=== PATIENT | female | born 1985 | race Caucasian/White ===

== ENCOUNTER 2020-02-12 15:06 | Outpatient (CLI) | payer OTHER, SELFPAY ==
--- NOTE | ~2020-02-12 | US_ITS ---
US breast LT limited 02/12/2020 15:32 Indication: Palpable left breast lump Procedure: High-resolution ultrasound of the left breast Comparison: No prior studies for comparison. Findings: At 5:00, 4 cm from the nipple in the area of palpable concern there is a septated 3 mm cyst . No suspicious masses are identified to suggest malignancy. Impression: 1: Septated 3 mm left breast cysts at 5:00, 4 cm from the nipple corresponding to the palpable abnorm ality. No sonographic evidence for malignancy. BI-RADS CATEGORY 2 - BENIGN FINDINGS Reviewed, dictated and finalized at location A. Impression: 1: Septated 3 mm left breast cysts at 5:00, 4 cm from the nipple corresponding to the palpable abnormality. No sonographic evidence for malignancy. BI-RADS CATEGORY 2 - BENIGN FINDINGS
== END 2020-02-12 15:07 | disposition home or self-care (01) ==
PROVIDERS: Visit Provider Obstetrics & Gynecology
DX: N63.20 Unspecified lump in the left breast, unspecified quadrant (principal); R92.8 Other abnormal and inconclusive findings on diagnostic imaging of breast
CPT/HCPCS: 76642

== ENCOUNTER 2020-06-17 15:34 | Outpatient (CLI) | payer OTHER, SELFPAY ==
--- NOTE | ~2020-06-17 | MM_ITS ---
EXAMINATION: MM screening gene BI w marilee HISTORY: Screening TECHNIQUE: Craniocaudal and mediolateral oblique 3-D tomosynthesis images were obtained and synthetic 2-D images were generated. CAD analysis was submitted and interpreted. COMPARISON: No prior mammogram is available for comparison at this institution. BREAST PARENCHYMAL COMPOSITION: The breasts are extremely dense, which lowers the sensitivity of mamm ography. FINDINGS: There is no evidence of suspicious mass, calcification, or architectural distortion to sugg est malignancy in either breast. There has been no suspicious interval change. IMPRESSION: 1. No mammographic evidence of malignancy. 2. Recommend routine screening mammography in one year. BI-RADS Category 1: Negative Reviewed, dictated and finalized at location A.
== END 2020-06-17 15:35 | disposition home or self-care (01) ==
LOC: ANHIMG 15:36
PROVIDERS: PCP Internal Medicine; Visit Provider Surgery Plastic and Reconstructive Surgery
DX: Z12.31 Encounter for screening mammogram for malignant neoplasm of breast (principal)
CPT/HCPCS: 77063; 77067

== ENCOUNTER 2020-07-01 01:35 | Outpatient (CLI) | payer SELFPAY ==
[2020-07-01 18:17] LABS: SARS-CoV-2 RNA PCR Negative
== END 2020-07-01 01:36 | disposition home or self-care (01) ==
LOC: ANHCOVIDDT 01:35
PROVIDERS: PCP Internal Medicine; Visit Provider Surgery Plastic and Reconstructive Surgery
DX: Z01.812 Encounter for preprocedural laboratory examination (principal); Z20.828 Contact with and (suspected) exposure to other viral communicable diseases
CPT/HCPCS: 87635; C9803; U0003

== ENCOUNTER 2020-07-03 01:13 | Day surgery (SDC) | payer OTHER, SELFPAY ==
[2020-06-24 08:53] VITALS: BMI 20.1
--- NOTE | 2020-07-02 14:22 | P.PNAN_ITS ---
Anes - Initial Pre Proc Eval Procedure: Operation Date: 07/03/20 12:00 Proposed Procedures p Bilateral Breast Augmentation - Espinoza Navarro MD Date/Time: 07/02/20 14:22 Surgeon: Espinoza Navarro MD Pre Op Diagnosis: Micromastia Patient Data Age: 34 Gender: F Height: 1.57 m Weight: 49.9 kg Allergies Allergy/AdvReac Type Severity Reaction Status Date / Time No Known Allergies Allergy Mild Verified 07/03/20 10:03 Home Medications Medication Instructions Recorded Confirmed Type mecobalamin (vitamin B12) 1,000 1,000 mcg PO DAILY 04/29/20 07/03/20 History mcg chewable tablet multivitamin 1 tablet PO DAILY 04/29/20 07/03/20 History docusate sodium 100 mg capsule 100 mg PO DAILY #14 cap 06/18/20 06/24/20 Rx ondansetron HCl 4 mg tablet 4 mg PO Q8H #28 tablet 06/18/20 06/24/20 Rx carisoprodol 350 mg tablet 350 mg PO TID PRN #21 tablet 06/22/20 06/24/20 Rx oxycodone-acetaminophen 5 mg-325 1 tablet PO Q6H PRN #15 tablet 06/22/20 06/24/20 Rx mg tablet Patient hx anesthesia problems: none Family hx anesthesia problems: none [facility] Past Medical History Medical History Cyst of breast Surgical History Surgical History History of 2006 Social History Social History Smoking status: Never smoker Alcohol intake: current Drinks per week: 2 Substance use: never Anes - Eval Final PreProcedure Day of Procedure 07/02/20 14:22 Patient weight: normal Heart: regular rate and rhythm Lungs: clear to auscultation and normal air movement Airway: Mallampati scale class II Neurological: alert and oriented Last oral intake: >/= 8 hours ASA classification: I Emergent: no Anesthetic plan: proceed Anesthesia type and monitoring: general LMA Informed Consent: The patient's anesthetic plan and its attendant risks and benefits were discussed with the patient/family/POA. Questions were solicited and answers provided to the satisfaction of the patient/family/POA.
[2020-07-03] VITALS (7 sets, daily range): BP systolic 103–123; BP diastolic 57–73; PULSE 61–107; RESP 14–18; TEMP 36.5–36.6; O2SAT 100
[2020-07-03] MEDS: LACTATED RINGERS 1,000 ML 30 ML IV CONT (10:30)
--- NOTE | 2020-07-03 11:56 | WPDHPUPDATE1 ---
History and Physical Update Update Date/Time: 07/03/20 11:56 History and Physical has been reviewed, including an updated exam of the patient. There are NO changes in the patient's condition. Risks, benefits, and alternatives have been discussed and questions answered. Patient agrees to proceed with procedure.
[2020-07-03] MEDS: LIDO 1%/EPINEPHRINE 1:100,000 20 ML VIAL 30 ML INFILTRATE (12:09)
[2020-07-03] MEDS: ceFAZolin 2 GM/D5W 50 ML 2 GM/50 ML BAG IVPB (12:09)
--- NOTE | 2020-07-03 13:13 | P.OP_ITS ---
Procedure Note - Detailed Date of procedure: 07/03/20 Pre-op diagnosis: Micromastia Post-op diagnosis: same Procedure performed: Bilateral breast augmentation Description of procedure: She is here today for bilateral breast augmentation. Previously and again today the risks, benefits, alternatives were discussed in extensive detail. I wanted her to be very realistic about the risks involved as well as expectations. We discussed aftercare and what to monitor for. Made sure answered all of her questions to her satisfaction today and consent was obtained. Marked in the preoperative holding area with their verification. The patient w as taken to the operating room placed supine on the operating table. Anesthesia was provided by anesthesiology. A surgical time-out was taken. We cleansed the skin and 1% lidocaine and 0.25% Marcaine with epinephrine was used anesthetize as a field block. She was prepped and draped in a standard sterile fashion. Tegaderm nipple Ruvalcaba were placed. A 15 blade used to make an incision along the inframammary fold. Dissection was continued at 45 degree angle until the chest wall as identified. I elevated above the muscle right dual plane 3, left dual plane 2. I incised the pectoralis major along its inferior border and completely released the inferior border leaving the medial border intact. I created a subpectoral pocket in the appropriate dimensions based on our preoperative planning for the implant. I then copiously irrigated with saline solution and verified a strict hemostasis. Next the use a triple antibiotic and Betadine containing solution to irrigate the pocket. I washed my gloves with the triple antibiotic and Betadine solution. We washed the implant immediately upon opening it with this solution and only opened it when we needed it. I used implant funnel and no-touch technique. The implant was introduced into the pocket using the funnel. Having verified positioning of the implant this was closed using 2-0 Vicryl followed by 3-0 Monocryl in a running subcuticular 4-0 Monocryl followed by tissue glue. Fluffs, Shane wrap, and surgical bra were placed. Patient was awoke and taken to PACU without difficulty. All instrument sponge counts were correct at the end of the case. Implants: Right dual plane 3 Left dual plane 2 Bilateral 335 Silicone SoftTouch implants Right: REF SSF-335 SN [id number] Left: REF SSF-335 SN [id number] Anesthesia: GLMA Surgeon: Espinoza Naavrro MD Estimated blood loss (mL): 5 Drains: No Packing: No Pathology: none sent Complications: No immediate complications Condition: stable Disposition: PACU
[2020-07-03] MEDS: fentaNYL CITRATE INJ (*CRX) 100 MCG/2 ML VIAL 25 MCG IV PUSH ×2 (13:36→13:39)
[2020-07-03] MEDS: oxyCODONE HCL (*CRX) 5 MG TAB IR PO (14:45)
== END 2020-07-03 15:10 | disposition home or self-care (01) ==
PROVIDERS: PCP Internal Medicine; Visit Provider Surgery Plastic and Reconstructive Surgery
PROC: (CPT 19325; principal; 2020-07-03 12:00)
DX: Z41.1 Encounter for cosmetic surgery (principal); N64.82 Hypoplasia of breast
CPT/HCPCS: 19325; A9270; J0690; J1100; J1580; J2250; J2405; J2704; J3010; J7120

== ENCOUNTER 2021-07-14 16:32 | Outpatient (CLI) | payer OTHER, SELFPAY ==
--- NOTE | ~2021-07-14 | MM_ITS ---
EXAMINATION: MM scrn gene implant BI w marilee HISTORY: Screening mammogram TECHNIQUE: Craniocaudal and mediolateral oblique 3-D tomosynthesis images with implant displacement a nd synthetic 2-D images were generated. Craniocaudal and mediolateral oblique views of the breasts wi thout implant displacement were obtained using full field digital mammography. CAD analysis was submi tted and interpreted. COMPARISON: 06/17/2020 bilateral screening mammogram 02/12/2020 limited left breast ultrasound BREAST PARENCHYMAL COMPOSITION: The breasts are extremely dense, which lowers the sensitivity of mamm ography. FINDINGS: Status post bilateral augmentation mammoplasty. There is a 5.5 x 7.7 mm mass with benign calcifications in the inner mid to upper left breast, consis tent with a benign calcified fibroadenoma. There is no evidence of suspicious mass, calcification, or architectural distortion to suggest malign sakina in either breast. There has been no suspicious interval change. IMPRESSION: 1. No mammographic evidence of malignancy. 2. Recommend routine screening mammography in one year. BI-RADS Category 2: Benign finding(s). Reviewed, dictated and finalized at location A. [employer]
== END 2021-07-14 16:33 | disposition home or self-care (01) ==
LOC: ANHIMG 16:34
PROVIDERS: PCP Surgery Plastic and Reconstructive Surgery; Visit Provider Obstetrics & Gynecology
DX: Z12.31 Encounter for screening mammogram for malignant neoplasm of breast (principal)
CPT/HCPCS: 77063; 77067

== ENCOUNTER 2022-11-30 08:04 | Outpatient (CLI) | payer SELFPAY ==
--- NOTE | ~2022-11-30 | MM_ITS ---
EXAMINATION: MM scrn gene implant BI w marilee HISTORY: Screening mammogram TECHNIQUE: Craniocaudal and mediolateral oblique 3-D tomosynthesis images with implant displacement a nd synthetic 2-D images were generated. Craniocaudal and mediolateral oblique views of the breasts wi thout implant displacement were obtained using full field digital mammography. CAD analysis was submi tted and interpreted. COMPARISON: 07/14/2021 BREAST PARENCHYMAL COMPOSITION: The breasts are extremely dense, which lowers the sensitivity of mamm ography FINDINGS: There is a focal asymmetry medial aspect of the right breast on CC view and lower aspect of the left breast on MLO view. There are no suspicious calcifications or architectural distortion. IMPRESSION: 1. Bilateral breast asymmetries. 2. Additional spot compression and mediolateral views with possible follow-up breast ultrasound recom mended. BI-RADS Category 0: Incomplete: Needs additional imaging evaluation. Reviewed, dictated and finalized at location A. IMPRESSION: 1. Bilateral breast asymmetries. 2. Additional spot compression and mediolateral views with possible follow-up b reast ultrasound recommended. BI-RADS Category 0: Incomplete: Needs additional imaging evaluation.
== END 2022-11-30 08:05 | disposition home or self-care (01) ==
LOC: ANHIMG 08:06
PROVIDERS: PCP Surgery Plastic and Reconstructive Surgery; Visit Provider Obstetrics & Gynecology
DX: Z12.31 Encounter for screening mammogram for malignant neoplasm of breast (principal); R92.8 Other abnormal and inconclusive findings on diagnostic imaging of breast
CPT/HCPCS: 77063; 77067

== ENCOUNTER 2022-12-20 12:02 | Outpatient (CLI) | payer OTHER, SELFPAY ==
--- NOTE | ~2022-12-20 | MMUS_ITS ---
EXAMINATION: MM diag gene implant BI w marilee, US breast LT limited HISTORY: Bilateral breast asymmetries on screening mammogram TECHNIQUE: Mediolateral and mediolateral oblique 3-D tomosynthesis images with implant displacement o f the breasts were performed and synthetic 2-D images were generated. CAD analysis was submitted and interpreted. High resolution limited left breast ultrasound was performed. COMPARISON: 11/30/2022, 07/14/2021, 06/17/2020 FINDINGS: MAMMOGRAPHIC FINDINGS: There is a return to baseline fibroglandular appearance with spot compression of the right breast in the area questioned on screening mammogram. Spot compression views of the left breast demonstrate a s table obscured, low density mass at the 9:00 location measuring approximately 9 mm. Stable punctate i nternal calcifications are noted. There has been no suspicious interval change. ULTRASOUND: There is an 8 mm x 3 mm oval, circumscribed, parallel, hypoechoic mass with no posterior features or internal vascularity at the 9:00 location, 3 cm from the nipple. IMPRESSION: 1. No mammographic or sonographic evidence of malignancy. 2. Recommend routine screening mammography in one year. BI-RADS Category 2: Benign finding(s). Reviewed, dictated and finalized at location A. IMPRESSION: 1. No mammographic or sonographic evidence of malignancy. 2. Recommend routine screening mammography in one year. BI-RADS Category 2: Benign finding(s).
== END 2022-12-20 12:03 | disposition home or self-care (01) ==
PROVIDERS: PCP Surgery Plastic and Reconstructive Surgery; Visit Provider Obstetrics & Gynecology
DX: N64.89 Other specified disorders of breast (principal)
CPT/HCPCS: 76642; 77062; 77066; G0279

== ENCOUNTER 2024-01-09 14:33 | Outpatient (CLI) | payer OTHER, SELFPAY ==
--- NOTE | ~2024-01-09 | MM_ITS ---
EXAMINATION: MM scrn gene implant BI w marilee HISTORY: Screening mammogram TECHNIQUE: Craniocaudal and mediolateral oblique 3-D tomosynthesis images with implant displacement a nd synthetic 2-D images were generated. Craniocaudal and mediolateral oblique views of the breasts wi thout implant displacement were obtained using full field digital mammography. CAD analysis was submi tted and interpreted. COMPARISON: December 20, 2022 bilateral diagnostic mammogram and Limited left breast ultrasound examinat ion 11/30/2022, 07/14/2021 bilateral implants screening mammogram examinations BREAST PARENCHYMAL COMPOSITION: The breasts are extremely dense, which lowers the sensitivity of mamm ography. FINDINGS: Status post bilateral augmentation mammoplasty. Question of mass versus composite shadowing of overlapping fibroglandular tissue in the medial right breast on implant displaced craniocaudal view. Diagnostic right mammogram and right breast ultrasound examination are recommended. Proximally 7 x 10 mm mass is suggested, with benign calcification, in the inner mid to upper aspect o f the left breast. Diagnostic left mammogram and left breast ultrasound examination is recommended. IMPRESSION: 1. Possible bilateral breast masses 2. Bilateral diagnostic mammography and breast ultrasound ultrasound examination are recommended BI-RADS Category 0: Incomplete: Needs additional imaging evaluation. Reviewed, dictated and finalized at location B. IMPRESSION: 1. Possible bilateral breast masses 2. Bilateral diagnostic mammography and breast ultrasound ultrasound examinatio n are recommended BI-RADS Category 0: Incomplete: Needs additional imaging evaluation.
== END 2024-01-09 14:34 | disposition home or self-care (01) ==
PROVIDERS: PCP Family Medicine Sports Medicine; Visit Provider Obstetrics & Gynecology
DX: Z12.31 Encounter for screening mammogram for malignant neoplasm of breast (principal); R92.8 Other abnormal and inconclusive findings on diagnostic imaging of breast
CPT/HCPCS: 77063; 77067

== ENCOUNTER 2024-01-31 10:26 | Outpatient (CLI) | payer OTHER, SELFPAY ==
--- NOTE | ~2024-01-31 | MMUS_ITS ---
EXAMINATION: MM diagnostic gene BI w marilee, US breast BI complete HISTORY: Possible bilateral breast masses on prior examination TECHNIQUE: Additional 3-D tomosynthesis images of the breasts were performed and synthetic 2-D images were generated. CAD analysis was submitted and interpreted. High resolution bilateral complete breas t ultrasound was performed. COMPARISON: Comparison to multiple prior studies sequentially, with oldest reviewed study dated 06/04. BREAST PARENCHYMAL COMPOSITION: Dense: The breasts are extremely dense, which lowers the sensitivity of mammography. FINDINGS: MAMMOGRAPHIC FINDINGS: There are no suspicious masses, calcifications or architectural distortion in either breast to sugges t malignancy. There is a stable mass in the medial aspect of the left breast with associated calcific ations, unchanged from prior studies allowing for differences of technique. ULTRASOUND: Complete bilateral US of all 4 quadrants of the breasts and retroareolar region was reviewed. Right breast: At 7:00, 2 cm from the nipple, there is 5 mm. At 10:00, 5 cm from the nipple there is a n oval hypoechoic mass with parallel orientation, circumscribed margins, no significant posterior fea tures and no internal vascularity measuring 12 mm. At 11:00, there is a small intramammary lymph node . Left breast: At 1:00, 5 cm from the nipple there is an oval hypoechoic mass with parallel orientation , no posterior features and no internal vascularity measuring 6 mm. IMPRESSION: 1. Probable benign bilateral breast masses. 2. Limited bilateral breast ultrasound recommended in 6 months. BI-RADS category 3, probably benign findings. Reviewed, dictated and finalized at location B. IMPRESSION: 1. Probable benign bilateral breast masses. 2. Limited bilateral breast ultrasound recommended in 6 months. BI-RADS category 3, probably benign findings.
== END 2024-01-31 10:27 | disposition home or self-care (01) ==
LOC: ANHIMG 10:29
PROVIDERS: PCP Family Medicine Sports Medicine; Visit Provider Obstetrics & Gynecology
DX: N63.10 Unspecified lump in the right breast, unspecified quadrant (principal); N63.20 Unspecified lump in the left breast, unspecified quadrant; R92.8 Other abnormal and inconclusive findings on diagnostic imaging of breast
CPT/HCPCS: 76641; 77062; 77066; G0279

== ENCOUNTER 2024-08-22 10:09 | Outpatient (CLI) | payer OTHER, SELFPAY ==
--- NOTE | ~2024-08-22 | US_ITS ---
US breast BI limited 08/22/2024 10:50 Indication: Follow-up bilateral breast masses Procedure: High-resolution Limited bilateral breast ultrasound Comparison: Comparison to multiple prior studies sequentially, with oldest reviewed study dated 02/11. Findings: Right breast: At 10:00, 5 cm from the nipple there is an oval hypoechoic parallel oriented mass with circumscribed margins, no significant posterior features and no internal vascularity measuring 1 5 x 1.2 x 0.6 cm without significant change from prior study allowing for differences of technique. Left breast: At 1:00, 5 cm from the nipple there is a 6 x 5 x 3 mm oval circumscribed hypoechoic mass without significant change from prior study. No internal vascularity or posterior features. Impression: 1: Stable likely benign bilateral breast masses. Recommend 6 month follow-up limited bilateral breast ultrasound and bilateral mammogram. BI-RADS CATEGORY 3-PROBABLY BENIGN FINDING Reviewed, dictated and finalized at location B. ER DRIER Impression: 1: Stable likely benign bilateral breast masses. Recommend 6 month follow-up li mited bilateral breast ultrasound and bilateral mammogram. BI-RADS CATEGORY 3-PROBABLY BENIGN FINDING
== END 2024-08-22 10:10 | disposition home or self-care (01) ==
LOC: ANHIMG 10:11
PROVIDERS: PCP Family Medicine Sports Medicine; Visit Provider Obstetrics & Gynecology
DX: N63.20 Unspecified lump in the left breast, unspecified quadrant (principal); N63.10 Unspecified lump in the right breast, unspecified quadrant; R92.8 Other abnormal and inconclusive findings on diagnostic imaging of breast
CPT/HCPCS: 76642

== ENCOUNTER 2025-02-14 10:27 | Outpatient (CLI) | payer OTHER, SELFPAY ==
--- NOTE | ~2025-02-14 | MMUS_ITS ---
EXAMINATION: MM diag gene implant BI w marilee, US breast BI complete HISTORY: Bilateral breast masses TECHNIQUE: Additional 3-D tomosynthesis images of the breasts were performed and synthetic 2-D images were generated. CAD analysis was submitted and interpreted. High resolution bilateral complete breas t ultrasound was performed. COMPARISON: Comparison to multiple prior studies sequentially, with oldest reviewed study dated 11/30. BREAST PARENCHYMAL COMPOSITION: Dense: The breasts are extremely dense, which lowers the sensitivity of mammography. FINDINGS: MAMMOGRAPHIC FINDINGS: There are no new masses, calcifications or architectural distortion in either breast to suggest ivory garg. ULTRASOUND: Complete US of all 4 quadrants of the breast/s and retroareolar region was reviewed. Right breast: At 10:00, 5 cm from the nipple there is a 1.5 cm cyst, unchanged from prior examination . No other masses identified in the right breast. Left breast: At 1:00, 5 cm from the nipple there is an oval hypoechoic 6 mm mass unchanged from prior studies dating back to 01/31/2024. At 10:00, 1 cm from the nipple there is an oval hypoechoic mass me asuring 9 x 7 x 3 mm with parallel orientation, hypoechoic echotexture, no internal vascularity and n o posterior features. This was not visualized on prior study. IMPRESSION: 1. No evidence for malignancy in the right breast. Probable benign left breast masses. 2. Recommend 6 month follow-up Limited left breast ultrasound BI-RADS category 3, probably benign findings. Reviewed, dictated and finalized at location B. IMPRESSION: 1. No evidence for malignancy in the right breast. Probable benign left breast masses. 2. Recommend 6 month follow-up Limited left breast ultrasound BI-RADS category 3, probably benign findings.
--- OUTSIDE RECORDS SUMMARY | 2025-02-14 10:33 | XMS_ITS | Referral Summary ---
Author Organization [facility] Address [address] [place] [id number] Care Team Providers [employer] Sales Representative Name Role Phone Henna Steele NP Primary Care Provider [phone] Saadia Nieves MD Unavailable [phone] Encounters Date Type Department Care Team Description 11/20/2024 Results Follow-Up [facility] Primary Care at [address] [address] Henna Steele NP CBC with auto differential, Comprehensive metabolic panel, Lipid panel, Additional followed-up results: 8 11/19/2024 8:22 AM CDT - 11/19/2024 11:59 PM CDT Hospital Encounter [address] [address] Macrocytosis; Screening for deficiency anemia; Screening for endocrine, nutritional, metabolic and immunity disorder; Screening, lipid; Thyroid disorder screen; Vitamin D deficiency; B12 deficiency; Iron deficiency; Elevated MCV Discharge Disposition: Discharge to home or self care 11/19/2024 8:15 AM CDT Lab [facility] Medical Group Outpatient Lab at [address] [address] Family history of colon cancer (Primary Dx) from Last 3 Months Allergies Active Allergy Reactions Criticality Noted Date Comments Sulfa (Sulfonamide Antibiotics) Hives Medium 06/04 Medications DAILY MULTI-VITAMIN ORAL Take by mouth Active elderberry fruit 350 mg capsule Take by mouth Active vitamin b complex tablet Take 1 tablet by mouth daily Active Active Problems Problem Noted Date Diagnosed Date Colon cancer screening 11/18/2022 Overview (11/18/2022): Added automatically from request for surgery [id number] Family history of colon cancer 11/16/2022 Assessment & Plan (09/18/2024 2:05 PM CAN CLEANER): Paternal Grandmother hx Colon Cancer. Patient gets Colonoscopy every 5 years, most recent 08/24/2023. 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 (12/09/2016): Chronic anal fissure Immunizations Immunization Administration Dates Next Due Influenza, Quadrivalent, Spl it, Preservative Free, Intramuscular 06/21/2022 Influenza, Trivalent, Cell C ulture-based MDCK, Preservative Free, Antibiotic Free, Intramuscular 06/18/2024 Influenza, Unspecified 06/13/2023,06/21/2022 Pfizer SARS-CoV-2 Monovalent Vaccination (12+ Yrs) PURPLE 10/27/2020,09/29/2020 Tdap 11/28/2023 Social History Tobacco Use Types Packs/Day Years Used Date Smoking Tobacco: Former Cigarettes 0.3 5 Smokeless Tobacco: Never Tobacco Cessation:Counseling Given: Not Answered AUDIT-C Answer Date Recorded Q1: How often do you have a drink containing alc ohol? 2-3 times a week 08/24/2023 Q2: How many drinks containi ng alcohol do you have on a typical day when you are drinking? 1 or 2 08/24/2023 Q3: How often do you have si x or more drinks on one occasion? Never 08/24/2023 PHQ-2 Answer Date Recorded PHQ-2 Total Score (If total score is 3 or more points, staff should administer the PHQ-9) 0 09/18/2024 Personal Safety Answer Date Recorded Have you ever been in or are you currently in a harmful physical or emotional relationship or is someone making you feel afraid or unsafe? 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 Not on file Not on jack e Last Filed Vital Signs Vital Sign Reading Time Taken Comments Blood Pressure 92/58 09/18/2024 1:37 PM CAN CLEANER Pulse 77 09/18/2024 1:37 PM CAN CLEANER Temperature 37 C (98.6 F) 09/18/2024 1:37 PM CAN CLEANER Respiratory Rate 20 08/24/2023 10:25 AM CAN CLEANER Oxygen Saturation 99% 09/18/2024 1:37 PM CAN CLEANER Inhaled Oxygen Concentration - - Weight 55.3 kg (122 lb) 09/18/2024 1:37 PM CAN CLEANER Height 157.5 cm (5' 2) 09/18/2024 1:37 PM CAN CLEANER Body Mass Index 22.31 09/18/2024 1:37 PM CAN CLEANER Plan of Treatment Not on file Procedures Procedure Name Priority Date/Time Associated Diagnosis Comments FOLATE Routine 11/19/2024 8:22 AM CDT Elevated MCV EGFR Routine 11/19/2024 8:22 AM CDT Screening for endocrine, nutritional, metabolic and immunity disorder DIFFERENTIAL AUTO Routine 11/19/2024 8:2 2 AM CDT Macrocytosis Screening for deficiency anemia IRON Routine 11/19/2024 8:22 AM CDT Iron deficiency FERRITIN Routine 11/19/2024 8:22 AM CDT Iron deficiency VITAMIN B12 Routine 11/19/2024 8:22 AM CDT Macrocytosis B12 deficiency VITAMIN D 25 HYDROXY Routine 11/19/2024 8:22 AM CDT Vitamin D deficiency THYROID FUNCTION CASCADE Routine 11/19/2024 8:22 AM CDT Thyroid disorder screen LIPID PANEL Routine 11/19/2024 8:22 AM CDT Screening, lipid COMPREHENSIVE METABOLIC PANEL Routine 11/19/2024 8:22 AM CDT Screening for endocrine, nutritional, metabolic and immunity disorder CBC WITH AUTO DIFFERENTIAL Routine 11/19/2024 8:22 AM CDT Macrocytosis Screening for deficiency anemia HM PAP SMEAR WITH HPV Routine 03/14/2024 8:29 AM CDT HM MAMMOGRAPHY Routine 02/28/2024 10:15 AM CDT COLONOSCOPY 08/24/2023 9:21 AM CAN CLEANER HEPATITIS C ANTIBODY Routine 06/22/2022 2:08 PM CDT Routine physical examination Encounter for hepatitis C screening test for low risk patient from Last 3 Months or Most Recently Relevant to Health Maintenance Results * eGFR (11/19/2024 8:22 AM CDT) eGFR >90 >=60 mL/min/1. 73 m2 Comment: Interpretive Data Reference Interval Normal >/= 90 mL/min/1.73m2 Mildly decreased* 60 - 89 mL/min/1.73m2 Mildly to moderately decreased 45 - 59 mL/min/1.73m2 Moderately to severely decreased 30 - 44 mL/min/1.73m2 Severely decreased 15 - 29 mL/min/1.73m2 Kidney Failure < 15 mL/min/1.73m2 *Relative to young adult level Estimated glomerular filtration rate is determined by the 2020 CKD-EPI equation recommended by the National Kidney Foundation (A Unifying Approach to GFR Estimation: Recommendations of the NKF-ASK Task Force on Reassessing the Inclusion of Race in Diagnosing Kidney Disease, JASN 202). The CKD-EPI equation should not be used for patients with unstable renal function and has not been validated in children and those over 70. Current interpretive data was last reviewed 2021. Blood 11/19/2024 8:22 AM CDT 11/19/2024 8:01 PM CDT us Hennasunil Steele NP LAB BLOOD ORDERABLES Final Resul t [facility] [address] Department [place] [address] * Differential, auto (11/19/2024 8:22 AM CDT) Neutrophil abs 1.8 1.5 - 6.5 K/cumm Imm gran abs 0.0 0.0 - 0.1 K/cumm [facility] Lymphocyte abs 2.2 0.8 - 3.3 K/cumm [facility] Monocyte abs 0.3 0.2 - 0.8 K/cumm [facility] Eosinophil abs 0.2 0.0 - 0.5 K/cumm [facility] Basophil abs 0.1 0.0 - 0.1 K/cumm [facility] Neutrophil pct 39.6 % [facility] Comment: Interpretive Data Percent cell count reference ranges are not reported, since discordance with absolute values may lead to misinterpretation of CBC data. Current Interpretive Data was last revised on 2017. Imm gran pct 0.2 % [facility] Comment: Interpretive Data Percent cell count reference ranges are not reported, since discordance with absolute values may lead to misinterpretation of CBC data. Current Interpretive Data was last revised on 2017. Lymphocyte pct 47.9 % [facility] Comment: Interpretive Data Percent cell count reference ranges are not reported, since discordance with absolute values may lead to misinterpretation of CBC data. Current Interpretive Data was last revised on 2017. Monocyte pct 7.3 % [facility] Comment: Interpretive Data Percent cell count reference ranges are not reported, since discordance with absolute values may lead to misinterpretation of CBC data. Current Interpretive Data was last revised on 2017. Eosinophil pct 3.5 % [facility] Comment: Interpretive Data Percent cell count reference ranges are not reported, since discordance with absolute values may lead to misinterpretation of CBC data. Current Interpretive Data was last revised on 2017. Basophil pct 1.5 % [facility] Comment: Interpretive Data Percent cell count reference ranges are not reported, since discordance with absolute values may lead to misinterpretation of CBC data. Current Interpretive Data was last revised on 2017. Blood 11/19/2024 8:22 AM CDT 11/19/2024 7:31 PM CDT Henna Steele INDUSTRIAL ECOLOGIST LAB BLOOD ORDERABLES Final Resul t Performing Organization Address City/[facility] Co de Phone Number [facility] [address] [facility] [place] [place] [address] * Thyroid Function [place] (11/19/2024 8:22 AM CDT) TSH 1.51 0.30 - 4.20 mcIUnit/mL Blood 11/19/2024 8:22 AM CDT 11/19/2024 7:31 PM CDT us Henna Steele INDUSTRIAL ECOLOGIST LAB BLOOD ORDERABLES Final Resul t Performing Organization Address [facility] [place]/[facility] de Phone Number [facility] [address] [place] [address] * (ABNORMAL) CBC with auto differential (11/19/2024 8:22 AM CDT) WBC 4.6 3.8 - 9.9 K/cumm Hgb 12.7 11.9 - 15.5 g/dL [facility] Hct 40.9 35.6 - 45.5 % [facility] Plt 338 150 - 400 K/cumm [facility] MPV 9.4 9.1 - 12.3 fL [facility] RBC 4.04 3.90 - 5.20 M/cumm [facility] MCV 101.2(H) 81.3 - 96.4 fL [facility] MCH 31.4 27.1 - 33.3 pg [facility] MCHC 31.1(L) 32.3 - 35.7 g/dL [facility] RDW CV 13.1 11.1 - 14.9 % [facility] RDW SD 48.7(H) 35.7 - 48.1 fL [facility] NRBC abs 0.00 0.00 - 0.01 K/cumm [facility] Blood 11/19/2024 8:22 AM CDT 11/19/2024 7:31 PM CDT us Henna Steele INDUSTRIAL ECOLOGIST LAB BLOOD ORDERABLES Final Resul t Performing Organization Address City/[facility] Co de Phone Number [facility] [address] [facility] [place] [address] * Vitamin D 25 hydroxy (11/19/2024 8:22 AM CDT) Vitamin D 25-OH 44 30 - 80 ng/mL Blood 11/19/2024 8:22 AM CDT 11/19/2024 7:31 PM CDT us Henna Steele INDUSTRIAL ECOLOGIST LAB BLOOD ORDERABLES Final Resul t Performing Organization Address [facility] [place]/[facility] de Phone Number [facility] [address] Department [place] [address] * Iron level (11/19/2024 8:22 AM CDT) Iron 59 35 - 145 mcg/dl Blood 11/19/2024 8:22 AM CDT 11/19/2024 7:31 PM CDT us Henna Steele INDUSTRIAL ECOLOGIST LAB BLOOD ORDERABLES Final Resul t Performing Organization Address [facility] [place]/[facility] de Phone Number C[facility] [address] [place] [address] * Folate (11/19/2024 8:22 AM CDT) Folic acid 17.4 >=5.0 ng/mL Comment:Hemolysis present. R esults may be affected. Blood 11/19/2024 8:22 AM CDT 11/20/2024 2:02 PM CDT us Henna Steele INDUSTRIAL ECOLOGIST LAB BLOOD ORDERABLES Final Resul t Performing Organization Address [facility] [place]/[facility] Co de Phone Number [facility] [address] Department [place] [address] * Ferritin (11/19/2024 8:22 AM CDT) Ferritin 104 15 - 150 ng/mL Blood 11/19/2024 8:22 AM CDT 11/19/2024 7:31 PM CDT us Henna Steele INDUSTRIAL ECOLOGIST LAB BLOOD ORDERABLES Final Resul t Performing Organization Address [facility] [place]/[facility] Co de Phone Number [facility] [address] [place] [address] * Vitamin B12 (11/19/2024 8:22 AM CDT) Vitamin B12 729 230 - 1,250 pg/mL Blood 11/19/2024 8:22 AM CDT 11/19/2024 7:31 PM CDT us Henna Steele INDUSTRIAL ECOLOGIST LAB BLOOD ORDERABLES Final Resul t Performing Organization Address [facility] [place]/[facility] de Phone Number [facility] [address] [place] [address] * (ABNORMAL) Lipid panel (11/19/2024 8:22 AM CDT) Cholesterol 210(H) 30 - 199 mg/dL Comment: Interpretive Data Ages < or = 19 years Acceptable: <170 mg/dL Borderline high: 170-199 mg/dL High: >or= 200 mg/dL Ages > or = 20 years Desirable: <200 mg/dL Borderline high: 200-239 mg/dL High: >or= 240 mg/dL Literature References: 1. Expert Panel on Integrated Guidelines for Cardiovascular Health and Risk Reduction in Children and Adolescents. Pediatrics 2011;128:S213 2. NCEP Expert Panel. Circulation 2004;110:227 Current Interpretive Data was last revised on 2018. Triglycerides 53 <=149 mg/dL [facility] Comment: Interpretive Data Ages < or = 9 years Acceptable: <75 mg/dL Borderline high: 75-99 mg/dL High: >or= 100 mg/dL Ages 10 to 20 years Acceptable: <90 mg/dL Borderline high: 90-129 mg/dL High: >or= 130 mg/dL Ages > or = 20 years Desirable: <150 mg/dL Borderline high: 150-199 mg/dL High: 200-499 mg/dL Very high: >or= 499 mg/dL Literature References: 1. Expert Panel on Integrated Guidelines for Cardiovascular Health and Risk Reduction in Children and Adolescents. Pediatrics 2011;128:S213 2. NCEP Expert Panel. Circulation 2004;110:227 Current Interpretive Data was last revised on 2018. HDL 85 >=40 mg/dL [facility] Comment: Interpretive Data Ages < or = 19 years Acceptable: >45 mg/dL Borderline low: 40-45 mg/dL Low: <40 mg/dL Ages > or = 20 years Desirable: >or= 60 mg/dL Low: <40 mg/dL Literature References: 1. Expert Panel on Integrated Guidelines for Cardiovascular Health and Risk Reduction in Children and Adolescents. Pediatrics 2011;128:S213 2. NCEP Expert Panel. Circulation 2004;110:227 Current Interpretive Data was last revised on 2018. LDL, calculated 115 <=129 mg/dL [facility] Comment: Interpretive Data Ages < or = 19 years Acceptable: <110 mg/dL Borderline high: 110-129 mg/dL High: >or= 130 mg/dL Ages > or = 20 years Optimal: <100 mg/dL Near optimal: 100-129 mg/dL Borderline high: 130-159 mg/dL High: >160 mg/dL Calculated using the Derek LDL-C estimating equation. This equation was implemented on 2024. Prior to this date LDL-C was estimated using the Friedewald equation. Literature References: 1. Expert Panel on Integrated Guidelines for Cardiovascular Health and Risk Reduction in Children and Adolescents. Pediatrics 2011;128:S213 2. NCEP Expert Panel. Circulation 2004;110:227 3. Derek Guzman al. ADRIAN Cardiol. 2020 January 02;5(5):540-548. doi: 10.1001/jamacardio.2020.0013 Current Interpretive Data was last revised on 2024. Non-HDL Cholesterol 125 mg/dL [facility] Comment: Interpretive Data Ages < or = 19 years Acceptable: <120 mg/dL Borderline high: 120-144 mg/dL High: >145 mg/dL Ages > or = 20 years When triglycerides are >200 mg/dL, Non-HDL cholesterol is a secondary target of therapy with treatment goals that are 30 mg/dL greater than the LDL cholesterol target. Literature References: 1. Expert Panel on Integrated Guidelines for Cardiovascular Health and Risk Reduction in Children and Adolescents. Pediatrics 2011;128:S213 2. NCEP Expert Panel. Circulation 2004;110:227 Current Interpretive Data was last revised on 2018. Chol/HDL ratio 2 [facility] Blood 11/19/2024 8:22 AM CDT 11/19/2024 7:31 PM CDT us Henna Steele NP LAB [place] [address] [address] Department [place] [address] * Comprehensive metabolic panel (11/19/2024 8:22 AM CDT) Sodium 138 135 - 145 mmol/L Potassium, pl 4.2 3.3 - 4.9 mmol/L [facility] Chloride 103 97 - 110 mmol/L [facility] CO2 24 22 - 32 mmol/L [facility] Anion gap 11 2 - 15 mmol/L [facility] BUN 18 6 - 25 mg/dL [facility] Creatinine 0.77 0.60 - 1.10 mg/dL [facility] Glucose 83 70 - 199 mg/dL [facility] Comment: Interpretive Data Fasting glucose >/= 126 mg/dl is diagnostic for diabetes. Fasting is defined as no caloric intake for at least 8 hours. Fasting glucose between 100 mg/dl to 125 mg/dl is diagnostic of prediabetes. In a patient with classic symptoms of hyperglycemia or hyperglycemic crisis, a random glucose >/= 200 mg/dl is diagnostic for diabetes. In the absence of unequivocal hyperglycemia, results should be confirmed by repeat testing. The classification and Diagnosis of Diabetes Diabetes Care 2021; 46: S19-S40. Current interpretive data was last revised 2022. Calcium 9.9 8.5 - 10.3 mg/dL [facility] Bilirubin, total 0.3 0.1 - 1.2 mg/dL [facility] Protein, pl 7.1 6.5 - 8.5 g/dL [facility] Albumin 4.5 3.5 - 5.0 g/dL [facility] Alk phos 59 40 - 130 Units/L [facility] ALT 17 7 - 45 Units/L [facility] AST 31 10 - 45 Units/L [facility] Blood 11/19/2024 8:22 AM CDT 11/19/2024 7:31 PM CDT Henna Steele INDUSTRIAL ECOLOGIST LAB BLOOD ORDERABLES Final Resul t [facility] [address] Department [place] [address] * PAP SMEAR WITH HPV (03/14/2024 8:29 AM CDT) Saadia Nieves MD HEALTH MAINTENANCE Angela l Result * (ABNORMAL) MAMMOGRAPHY (02/28/2024 10:15 AM CDT) Mammography Abnormal Fahad Joseph MD [facility] MAINTENANCE Final Re sult * COLONOSCOPY (08/24/2023 9:21 AM CAN CLEANER) Anatomical Region Laterality Modality Other Narrative Procedure Note Dandy Cano MD - 08/24/2023 9:21 AM CST ENDOSCOPY LAB Patient Name: Yasmin Khan Procedure Date: 08/24/2023 9:21 AM Admit Type: Outpatient Room: [facility] 3 Date of : 1985 Instrument Name: [id number] Gender: Female Note Status: Finalized Procedure: Colonoscopy Indications: Screening for colorectal malignant neoplasm, Last colonoscopy: 2015, Family history of colon cancerin a distant relative Providers: Dandy Cano M.D. Referring MD: Amber Thomas M.D. Medicines: Propofol per Anesthesia Complications: No immediate complications. Estimated Blood Loss: Estimated blood loss: none. Procedure: Pre-Anesthesia Assessment: - Prior to the procedure, a History and Physicalwas performed, and patient medications and allergieswere reviewed. The patient's tolerance of previous anesthesia was also reviewed. The risks andbenefits of the procedure and the sedation options and risks were discussed with the patient. All questions were answered, and informed consent was obtained. Prior Anticoagulants: The patient has taken noanticoagulant or antiplatelet agents. ASA Grade Assessment: I - A normal, healthy patient. After reviewing the risksand benefits, the patient was deemed in satisfactory condition to undergo the procedure. - The risks and benefits of the procedure and the sedation options and risks were discussed with the patient. All questions were answered and informed consent was obtained. The benefits, risks and alternatives of theprocedure and sedation were discussed and informed consentwas obtained. All questions were answered. Please referto the signed informed consent document in the medical record. The scope was passed under direct vision.The Colonoscope was introduced through the anus and advanced to the the terminal ileum. The colonoscopy was performed without difficulty. The patient tolerated the procedure well. The quality of thebowel preparation was evaluated using the BBPS (BostonBowel Preparation Scale) with scores of: Right Colon = 2 (minor amount of residual staining, small fragmentsof stool and/or opaque liquid, but mucosa seen well), Transverse Colon = 2 (minor amount of residual staining, small fragments of stool and/or opaque liquid, but mucosa seen well) and Left Colon = 2 (minor amount of residual staining, small fragmentsof stool and/or opaque liquid, but mucosa seen well).The total BBPS score equals 6. The quality of the bowel preparation was good. The bowel preparation usedwas Plenvu via split dose instruction. Findings: The perianal and digital rectal examinations were normal. The terminal ileum appeared normal. A 6 mm polyp was found in the cecum. The polyp was sessile. The polyp was removed with a cold snare. Resection and retrieval werecomplete. The exam was otherwise without abnormality on direct and retroflexion views. Impression: - The examined portion of the ileum was normal. - One 6 mm polyp in the cecum, removed with a cold snare. Resected and retrieved. - The examination was otherwise normal on directand retroflexion views. Recommendation: - Patient has a contact number available for emergencies. The signs and symptoms of potential delayed complications were discussed with thepatient. Return to normal activities tomorrow. Written discharge instructions were provided to thepatient. - High fiber diet. - Continue present medications. - Await pathology results. - Repeat colonoscopy in 5 years for surveillancebased on pathology results. Electronically signed by Dandy Cano M.D. Dandy Cano M.D. 08/24/2023 9:54:51 AM Number of Addenda: 0 Note Initiated On: 08/24/2023 9:21 AM Scope Withdrawal Time: 0 hours 13 minutes 38 seconds Scope In: 9:28:03 AM Scope Out: 9:47:51 AM us Dandy Cano MD ENDOSCOPY PROCEDURES Final Result * Hepatitis C antibody (06/22/2022 2:08 PM CDT) Hep C Ab Nonreactive Nonreactive [facility] Comment: Interpretive Data Nonreactive: Antibodies to HCV not detected. Does NOT exclude the possibility of recent exposure to HCV. Equivocal: Equivocal for HCV antibodies. Supplemental molecular testing will be automatically performed to determine infection status in accordance with current CDC screening recommendations. Reactive: Positive for HCV antibodies. This may represent current or past HCV infection. Supplemental molecular testing will be automatically performed to determine current infection status in accordance with current CDC screening recommendations. Interpretive data was last revised on 2019. Blood 06/22/2022 2:08 PM CDT 06/22/2022 7:30 PM CDT Amber Thomas MD LAB MICROBIOLOGY - GEN ERAL ORDERABLES Final Result [facility] [id number] Department [place] [address] from Last 3 Months or Most Recently Relevant to Health Maintenance Insurance [facility] [employer] Address: [address] [address] [employer] [facility] [employer] Address: [address] JANNY Chin [address] [facility] EM[employer]OYEES [employer] HMO/PPO Address: [address] [address] [place] [address] Advance Directives For more information, please contact: [phone] * Full Code (Latest Code Status on File) Date Activated Date Inactivated Comments 08/24/2023 8:43 AM 08/24/2023 2:35 PM Care Teams [employer] Sales Representative Relationship Specialty Start Date End Date Henna Steele NP [address] [place] [address] PCP - General Family Medicine 09/18/24 Saadia Nieves MD [address] [place] [address] Obstetrics and Gynecology 09/18/24
--- OUTSIDE RECORDS SUMMARY | 2025-02-14 10:33 | XMS_ITS | Clinical Summary ---
Author Organization [facility] Address [address] [place] [address] Care Team Providers Care Senior Category Manager Name Role Phone Henna Steele NP Primary Care Provider [phone] Saadia Nieves MD Unavailable [phone] Allergies Active Allergy Reactions Criticality Noted Date Comments Sulfa (Sulfonamide Antibiotics) Hives Medium 06/04 Medications DAILY MULTI-VITAMIN ORAL Take by mouth Active elderberry fruit 350 mg capsule Take by mouth Active vitamin b complex tablet Take 1 tablet by mouth daily Active Active Problems Problem Noted Date Diagnosed Date Colon cancer screening 11/18/2022 Overview (11/18/2022): Added automatically from request for surgery [id number] Family history of colon cancer 11/16/2022 Assessment & Plan (09/18/2024 2:05 PM LINE DRIVER): Paternal Grandmother hx Colon Cancer. Patient gets Colonoscopy every 5 years, most recent 08/24/2023. 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 (12/09/2016): Chronic anal fissure Encounters Date Type Department Care Team Description 11/20/2024 Results Follow-Up [facility] Primary Care at [address] [address] Henna Steele NP CBC with auto differential, Comprehensive metabolic panel, Lipid panel, Additional followed-up results: 8 11/19/2024 8:22 AM CDT - 11/19/2024 11:59 PM CDT [place] [address] Macrocytosis; Screening for deficiency anemia; Screening for endocrine, nutritional, metabolic and immunity disorder; Screening, lipid; Thyroid disorder screen; Vitamin D deficiency; B12 deficiency; Iron deficiency; Elevated MCV Discharge Disposition: Discharge to home or self care 11/19/2024 8:15 AM CDT Lab [facility] Outpatient Lab at [address] [address] Family history of colon cancer (Primary Dx) from Last 3 Months Immunizations Immunization Administration Dates Next Due Influenza, Quadrivalent, Spl it, Preservative Free, Intramuscular 06/21/2022 Influenza, Trivalent, Cell C ulture-based MDCK, Preservative Free, Antibiotic Free, Intramuscular 06/18/2024 Influenza, Unspecified 06/13/2023,06/21/2022 Pfizer SARS-CoV-2 Monovalent Vaccination (12+ Yrs) PURPLE 10/27/2020,09/29/2020 Tdap 11/28/2023 Surgical History Surgery Date Site/Laterality Comments SECTION 09/04/2006 - 09/03/2007 AUGMENTATION MAMMOPLASTY 09/04/2019 - 09/03/2020 BREAST SURGERY 06/2020 Medical History Medical History Date Comments 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 Family History Medical History Relation Name Comments Hyperlipidemia Father Andrea Alzheimer's disease Maternal Grandmother Maritza Hypertension Mother Giovanni Diabetes Paternal Grandfather Alan Colon cancer Paternal Grandmother Valentina Breast cancer Neg Hx Relation Name Status Comments Father Andrea Alive Maternal Grandmother Nova Mother Giovanni Alive Paternal Grandfather Alan Paternal Grandmother Valentina Social History Tobacco Use Types Packs/Day Years [...] on file Legal Sex Female 7:30 AM LINE DRIVER Gender Identity Not on file Sexual Orientation Not on file 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 Not on file Not on jack e Obstetrics History Last Filed Vital Signs Vital Sign Reading Time Taken Comments Blood Pressure 92/58 09/18/2024 1:37 PM LINE DRIVER Pulse 77 09/18/2024 1:37 PM LINE DRIVER Temperature 37 C (98.6 F) 09/18/2024 1:37 PM LINE DRIVER Respiratory Rate 20 08/24/2023 10:25 AM LINE DRIVER Oxygen Saturation 99% 09/18/2024 1:37 PM LINE DRIVER Inhaled Oxygen Concentration - - Weight 55.3 kg (122 lb) 09/18/2024 1:37 PM LINE DRIVER Height 157.5 cm (5' 2) 09/18/2024 1:37 PM LINE DRIVER Body Mass Index 22.31 09/18/2024 1:37 PM LINE DRIVER Plan of Treatment Health Maintenance Due Date Last Done Comments Hepatitis B Screening 2001 Covid-19 Vaccine ( season) 2024 10/27/2020, 09/29/2020 Regular Well Visit/Exam 18-64 11/27/2024 11/28/2023, 06/22/2022 Breast Cancer Screening-Mammogram 02/27/2025 02/28/2024, 01/31/2024, 01/09/2024, Additional history exists Cervical Cancer Screening 03/14/20252023, 03/04/2024, 10/21/2020 Depression Screening 09/18/2025 09/18/2024, 11/28/2023, 06/22/2022 Colon Cancer Screening-Colonoscopy 08/24/2028 08/24/2023 DTaP/Tdap/Td Vaccine (2 - Td or Tdap) 11/27/2033 11/28/2023 Hepatitis C Screening Completed 06/22/2022 Influenza Vaccine Completed 06/18/2024, , 06/21/2022, Additional history exists HPV Vaccines Aged Out No longer eligi ble based on patient's age to complete this topic Pneumococcal vaccine <65 Aged Out No longer eligible based on patient's age to complete this topic Varicella Vaccines Discontinued Procedures Procedure Name Priority Date/Time Associated Diagnosis [...] 10:15 AM CDT COLONOSCOPY 08/24/2023 9:21 AM LINE DRIVER HEPATITIS C ANTIBODY Routine 06/22/2022 2:08 PM [...] of Race in Diagnosing Kidney Disease, JASN 2020). The CKD-EPI equation should not be used for patients with unstable renal function and has not been validated in children and those over 70. Current interpretive data was last reviewed 2021. Blood 11/19/2024 8:22 AM CDT 11/19/2024 8:01 PM CDT us Henna Steele NP LAB BLOOD ORDERABLES Final Resul t [facility] [address] Department [place] [address] * Differential, auto (11/19/2024 8:22 AM CDT) Neutrophil abs 1.8 1.5 - 6.5 K/cumm Imm gran abs 0.0 0.0 - 0.1 K/cumm [facility] Lymphocyte abs 2.2 0.8 - 3.3 K/cumm [facility] Monocyte abs 0.3 0.2 - 0.8 K/cumm [facility] Eosinophil abs 0.2 0.0 - 0.5 K/cumm [facility] Basophil abs 0.1 0.0 - 0.1 K/cumm [facility] Neutrophil pct 39.6 % [facility] Comment: Interpretive Data Percent cell count reference ranges are not reported, since discordance with absolute values may lead to misinterpretation of CBC data. Current Interpretive Data was last revised on 2017. Imm gran pct 0.2 % [facility] Comment: Interpretive Data Percent cell count reference ranges are not reported, since discordance with absolute values may lead to misinterpretation of CBC data. Current Interpretive Data was last revised on 2017. Lymphocyte pct 47.9 % [facility] Comment: Interpretive Data Percent cell count reference ranges are not reported, since discordance with absolute values may lead to misinterpretation of CBC data. Current Interpretive Data was last revised on 2017. Monocyte pct 7.3 % [facility] Comment: Interpretive Data Percent cell count reference ranges are not reported, since discordance with absolute values may lead to misinterpretation of CBC data. Current Interpretive Data was last revised on 2017. Eosinophil pct 3.5 % [facility] Comment: Interpretive Data Percent cell count reference ranges are not reported, since discordance with absolute values may lead to misinterpretation of CBC data. Current Interpretive Data was last revised on 2017. Basophil pct 1.5 % [facility] Comment: Interpretive Data Percent cell count reference ranges are not reported, since discordance with absolute values may lead to misinterpretation of CBC data. Current Interpretive Data was last revised on 2017. Blood 11/19/2024 8:22 AM CDT 11/19/2024 7:31 PM CDT Henna Steele NP LAB BLOOD ORDERABLES Final Resul t [facility] [address] [place] [address] * Thyroid Function [place] (11/19/2024 8:22 AM CDT) Pathologist [facility] TSH 1.51 0.30 - 4.20 mcIUnit/mL Blood 11/19/2024 8:22 AM CDT 11/19/2024 7:31 PM CDT us Henna Steele SOLE MOLDER LAB BLOOD ORDERABLES Final Resul t Performing Organization Address [facility] de Phone Number [facility] [address] [place] [address] * (ABNORMAL) CBC with auto differential (11/19/2024 8:22 AM CDT) Pathologist [facility] WBC 4.6 3.8 - 9.9 K/cumm Hgb 12.7 11.9 - 15.5 g/dL [facility] Hct 40.9 35.6 - 45.5 % [facility] Plt 338 150 - 400 K/cumm [facility] MPV 9.4 9.1 - 12.3 fL [facility] RBC 4.04 3.90 - 5.20 M/cumm [facility] CH MCV 101.2(H) 81.3 - 96.4 fL [facility] MCH 31.4 27.1 - 33.3 pg [facility] MCHC 31.1(L) 32.3 - 35.7 g/dL [facility] RDW CV 13.1 11.1 - 14.9 % [facility] CH RDW SD 48.7(H) 35.7 - 48.1 fL [facility] NRBC abs 0.00 0.00 - 0.01 K/cumm [facility] CH Blood 11/19/2024 8:22 AM CDT 11/19/2024 7:31 PM CDT us Henna Steele SOLE MOLDER LAB BLOOD ORDERABLES Final Resul t Performing Organization Address [facility] [place] Co de Phone Number [facility] [address] [address] [phone] * Vitamin D 25 hydroxy (11/19/2024 8:22 AM CDT) Vitamin D 25-OH 44 30 - 80 ng/mL Blood 11/19/2024 8:22 AM CDT 11/19/2024 7:31 PM CDT us Henna Steele SOLE MOLDER LAB BLOOD ORDERABLES Final Resul t Performing Organization Address City/[facility] Co de Phone Number [facility] [address] [place] [address] * Iron level (11/19/2024 8:22 AM CDT) Iron 59 35 - 145 mcg/dl Blood 11/19/2024 8:22 AM CDT 11/19/2024 7:31 PM CDT us Henna Steele SOLE MOLDER LAB BLOOD ORDERABLES Final Resul t Performing Organization Address [facility] [place]/[facility] de Phone Number [facility] [address] [place] [address] * Folate (11/19/2024 8:22 AM CDT) Folic acid 17.4 >=5.0 ng/mL Comment:Hemolysis present. R esults may be affected. Blood 11/19/2024 8:22 AM CDT 11/20/2024 2:02 PM CDT us Henna Steele SOLE MOLDER LAB BLOOD ORDERABLES Final Resul t Performing Organization Address [facility] Co de Phone Number [facility] [address] [facility] [place] [address] * Ferritin (11/19/2024 8:22 AM CDT) Ferritin 104 15 - 150 ng/mL Blood 11/19/2024 8:22 AM CDT 11/19/2024 7:31 PM CDT us Henna Steele SOLE MOLDER LAB BLOOD ORDERABLES Final Resul t Performing Organization Address [facility] Co de Phone Number [facility] [address] [place] [address] * Vitamin B12 (11/19/2024 8:22 AM CDT) Vitamin B12 729 230 - 1,250 pg/mL Blood 11/19/2024 8:22 AM CDT 11/19/2024 7:31 PM CDT us Henna Steele SOLE MOLDER LAB BLOOD ORDERABLES Final Resul t Performing Organization Address [facility] de Phone Number [facility] [address] [place] [address] * (ABNORMAL) Lipid panel (11/19/2024 8:22 AM [...] on 2018. HDL 85 >=40 mg/dL [facility] Comment: Interpretive Data Ages [...] 2018. LDL, calculated 115 <=129 mg/dL [facility] Comment: Interpretive Data Ages [...] NCEP Expert Panel. Circulation 2004;110:227 3. Derek Maynard et al. ADRIAN Cardiol. 2019January 02;5(5):540-548. doi: 10.1001/jamacardio.2020.0013 Current Interpretive Data was last revised on 2024. Non-HDL Cholesterol 125 mg/dL [facility] Comment: Interpretive Data Ages [...] CDT 11/19/2024 7:31 PM CDT Henna Steele NP LAB [place] [address] [address] Department [place] [address] * Comprehensive metabolic panel (11/19/2024 8:22 AM [...] CDT 11/19/2024 7:31 PM CDT Henna Steele NP LAB BLOOD ORDERABLES Final Resul t [facility] [address] [place] [address] * HM PAP SMEAR WITH HPV (03/14/2024 8:29 AM CDT) us Saadia Nieves MD HEALTH MAINTENANCE Angela l Result * (ABNORMAL) HM MAMMOGRAPHY (02/28/2024 10:15 AM CDT) Mammography Abnormal us Fahad Joseph MD HEALTH MAINTENANCE Final Re sult * COLONOSCOPY (08/24/2023 9:21 AM LINE DRIVER) Anatomical Region Laterality Modality Other Narrative Procedure Note RootDandy MD - 08/24/2023 9:21 AM CST ENDOSCOPY LAB Patient Name: Yasmin Khan Procedure Date: 08/24/2023 9:21 AM Admit Type: Outpatient Room: [facility] 3 Date of : 1985 Instrument Name: [id number] Gender: Female Note Status: Finalized Procedure: Colonoscopy [...] In: 9:28:03 AM Scope Out: 9:47:51 AM Dandy Cano MD ENDOSCOPY PROCEDURES Final Result [...] - [place] [id number] [address] [place] [address] from Last 3 Months or Most Recently Relevant to Health Maintenance Insurance [facility] EMPL[employer] Address: [facility] [id number] [place] [address] [facility] EMPL[employer]EE HEALTH PLANS Address: [address] [place] [address] [facility] EMPLOYEES [employer]ALTH [place] HMO/PPO Address: [facility] [address] [place] [address] Advance Directives For more information, please contact: [phone] * Full Code (Latest Code Status on File) Date Activated Date Inactivated Comments 08/24/2023 8:43 AM 08/24/2023 2:35 PM Care Teams Senior Category Manager Relationship Specialty Start Date End Date Henna Steele NP [address] [place] [address] PCP - General Family Medicine 09/18/24 Saadia Nieves MD [address] [place] [address] Obstetrics and Gynecology 09/18/24
== END 2025-02-14 10:28 | disposition home or self-care (01) ==
LOC: ANHIMG 10:28
PROVIDERS: PCP Family Medicine Sports Medicine; Visit Provider Obstetrics & Gynecology
DX: R92.8 Other abnormal and inconclusive findings on diagnostic imaging of breast (principal)
CPT/HCPCS: 76641; 77062; 77066; G0279

== ENCOUNTER 2025-08-20 10:24 | Outpatient (CLI) | payer OTHER, SELFPAY ==
--- NOTE | ~2025-08-20 | US_ITS ---
EXAMINATION: US breast LT limited INDICATION: 39-year old female; 6 month follow-up left breast findings. COMPARISON: 02/14/2025 through 02/12/2020 TECHNIQUE: Targeted sonographic evaluation of the area of concern in the LEFT breast was completed. FINDINGS: A 0.6 cm hypoechoic circumscribed mass at 1:00 location 5 cm from the nipple in the LEFT breast redemonstrated is unchanged. A 0.9 cm hypoechoic circumscribed mass at 10:00 location 1 cm from the nipple in the LEFT breast redemonstrated is unchanged. IMPRESSION: Probably benign LEFT breast masses. No significant interval change. RECOMMENDATION: BILATERAL ANNUAL MAMMOGRAPHY DUE FEBRUARY 2026 AND 6 MONTH FOLLOW-UP LEFT BREAST ULTRASOUND. BI-RADS 3, PROBABLY BENIGN Reviewed, dictated and finalized at location A. OFINISHING LABORATORY WORKER IMPRESSION: Probably benign LEFT breast masses. No significant interval change. RECOMMENDATION: BILATERAL ANNUAL MAMMOGRAPHY DUE FEBRUARY 2026 AND 6 MONTH FOLLOW-UP LEFT BREAST UL TRASOUND. BI-RADS 3, PROBABLY BENIGN
--- OUTSIDE RECORDS SUMMARY | 2025-08-20 12:17 | XMS_ITS | Clinical Summary ---
Author Organization [facility] Address [address] [place] [address] Care Team Providers Care Environmental Remediation Engineer Name Role Phone Henna Steele NP Primary Care Provider [phone] Saadia Nieves MD Unavailable [phone] Allergies Active Allergy Reactions Criticality Noted Date Comments Sulfa (Sulfonamide Antibiotics) Hives Medium 06/04 Medications DAILY MULTI-VITAMIN ORAL Take by mouth Active elderberry fruit 350 mg capsule Take by mouth Active vitamin b complex tablet Take 1 tablet by mouth daily Active Active Problems Problem Noted Date Diagnosed Date Colon cancer screening 11/18/2022 Overview (11/18/2022): Added automatically from request for surgery [id number] Family history of colon cancer 11/16/2022 Assessment & Plan (09/18/2024 2:05 PM TIRE BUILDING SUPERVISOR): Paternal Grandmother hx Colon Cancer. 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 Last Filed Vital Signs Vital Sign Reading Time Taken Comments Blood Pressure 92/58 09/18/2024 1:37 PM TIRE BUILDING SUPERVISOR Pulse 77 09/18/2024 1:37 PM TIRE BUILDING SUPERVISOR Temperature 37 C (98.6 F) 09/18/2024 1:37 PM TIRE BUILDING SUPERVISOR Respiratory Rate 20 08/24/2023 10:25 AM TIRE BUILDING SUPERVISOR Oxygen Saturation 99% 09/18/2024 1:37 PM TIRE BUILDING SUPERVISOR Inhaled Oxygen Concentration - - Weight 55.3 kg (122 lb) 09/18/2024 1:37 PM TIRE BUILDING SUPERVISOR Height 157.5 cm (5' 2) 09/18/2024 1:37 PM TIRE BUILDING SUPERVISOR Body Mass Index 22.31 09/18/2024 1:37 PM TIRE BUILDING SUPERVISOR Plan of Treatment Health Maintenance Due Date Last Done Comments Hepatitis B Screening 2001 HPV Vaccines (1 - 3-dose SCDM series) 2010 Regular Well Visit/Exam 18-64 11/27/2024 11/28/2023, 06/22/2022 Breast Cancer Screening-Mammogram 02/27/2025 02/28/2024, 01/31/2024, 01/09/2024, Additional history exists Cervical Cancer Screening 03/14/20252023, 03/04/2024, 10/21/2020 Covid-19 Vaccine ( season) 2025 10/27/2020, 09/29/2020 Influenza Vaccine (#1) 2025 , 06/13/2023, 06/21/2022, Additional history exists Depression Screening 09/18/2025 09/18/2024, 11/28/2023, 06/22/2022 Colon Cancer Screening-Colonoscopy 08/24/2028 08/24/2023 DTaP/Tdap/Td Vaccine (2 - Td or Tdap) 11/27/2033 11/28/2023 Hepatitis C Screening Completed 06/22/2022 Pneumococcal vaccine <65 Aged Out No longer eligible based on patient's age to complete this topic Varicella Vaccines Discontinued Procedures Procedure Name Priority Date/Time Associated Diagnosis Comments HM PAP SMEAR WITH HPV Routine 03/14/2024 8:29 AM CDT HM MAMMOGRAPHY Routine 02/28/2024 10:15 AM CDT COLONOSCOPY 08/24/2023 9:21 AM TIRE BUILDING SUPERVISOR HEPATITIS C ANTIBODY Routine 06/22/2022 2:08 PM CDT Routine physical examination Encounter for hepatitis C screening test for low risk patient from Last 3 Months or Most Recently Relevant to Health Maintenance Results * HM PAP SMEAR WITH HPV (03/14/2024 8:29 AM CDT) us Saadia Nieves MD HEALTH MAINTENANCE Angela l Result * (ABNORMAL) HM MAMMOGRAPHY (02/28/2024 10:15 AM CDT) Mammography Abnormal us Fahad Joseph MD HEALTH MAINTENANCE Final Re sult * COLONOSCOPY (08/24/2023 9:21 AM TIRE BUILDING SUPERVISOR) Anatomical Region Laterality Modality Other Narrative Procedure Note RootDandy MD - 08/24/2023 9:21 AM CST ENDOSCOPY LAB Patient Name: Yasmin Khan Procedure Date: 08/24/2023 9:21 AM Admit Type: Outpatient Room: [facility] 3 Date of : 1985 Instrument [...] [place] [id number] [address] Department [place] [address] from Last 3 Months or Most Recently Relevant to Health Maintenance Insurance [facility] [employer] HEALTH PLANS Address: [facility] [id number] [place] [address] [facility] [employer] HEALTH PLANS Address: [address] [place] [address] [facility] [employer] [facility] H[employer]/PPO Address: [id number] [place] [address] Advance Directives For more information, please contact: [phone] * Full Code (Latest Code Status on File) Date Activated Date Inactivated Comments 08/24/2023 8:43 AM 08/24/2023 2:35 PM Care Teams Environmental Remediation Engineer Relationship Specialty Start Date End Date Henna Steele NP [address] [place] [address] PCP - General Family Medicine 09/18/24 Saadia Nieves MD [address] [place] [address] Obstetrics and Gynecology 09/18/24
--- OUTSIDE RECORDS SUMMARY | 2025-08-20 12:17 | XMS_ITS | Clinical Summary ---
Author Organization [facility] Address [address] [place] [address] Care Team Providers Care Organic Extractions Technician Name Role Phone Cristi Jackson MD Primary Care Provider [phone] Social History Tobacco Use Types Packs/Day Years Used Date Smoking Tobacco: Never Assessed Comments Unknown Sex and Gender Information Value Date Recorded Sex Assigned at Not on file Legal Sex Female 7:58 PM CDT Gender Identity Not on file Sexual Orientation Not on file Plan of Treatment Health Maintenance Due Date Last Done Comments Cervical Cancer Screening Pa p Smear (Age 30 to 64) Every 3 Years 1985 Annual Physical 1986 Hepatitis C 2001 DTaP, Tdap and Td Vaccines ( 1 - Tdap) 2002 Hepatitis B Vaccines (1 of 3 - 19+ 3-dose series) 2002 HPV Vaccines (1 - 3-dose SCD M series) 2010 Cervical Cancer Screening Pa p with HPV Testing (Age 30 to 64) Every 5 Years 2013 Cervical Cancer Screening with HPV 2013 Mammogram Screening 2023 COVID-19 Vaccine (2024-2 6 season) 2025 09/21/2020 Influenza Adult (#1) 2025 Hepatitis A Vaccines Aged Out No long er eligible based on patient's age to complete this topic Meningococcal B Vaccine Aged Out No l onger eligible based on patient's age to complete this topic Meningococcal Vaccine Aged Out No destiny richi eligible based on patient's age to complete this topic Pneumococcal Vaccine: Pediat rics (0 to 5 Years) and At-Risk Patients (6 to 49 Years) Aged Out No longer eligi ble based on patient's age to complete this topic RSV Immunizations Under 20 Months Aged Out No longer eligible based on patient's age to complete this topic Insurance [facility] Care Teams Organic Extractions Technician Relationship Specialty Start Date End Date Cristi Jackson MD [address] [place] [id number] PCP - General INTERNAL MEDICINE 08/05/21
== END 2025-08-20 10:25 | disposition home or self-care (01) ==
LOC: ANHFOHIMG 10:27
PROVIDERS: PCP Nurse Practitioner Family; Visit Provider Obstetrics & Gynecology
DX: N63.0 Unspecified lump in unspecified breast (principal); R92.8 Other abnormal and inconclusive findings on diagnostic imaging of breast
CPT/HCPCS: 76642